=== PATIENT | male | born 1960 | race Caucasian/White ===

== ENCOUNTER 2016-12-31 16:16 | Observation (INO) ==
--- NOTE | 2016-12-31 17:16 | Emergency Department Note ---
Pj Greco Mantricia, am scribing for, and in the presence of, Damian Burns MD 17:13. Grant Greco Phillip K, MD, personally performed the services described in this documentation, ascribed by Nica Oliva in my presence, and it is both accurate and complete 716 . Arrival - Arrival Chief Complaint: Shortness of Breath Stated Complaint: TRANSFER FROM [facility], [facility] ED Nursing Triage Note: PT TRANSFERRED FROM [facility] ER FOR EVALUATION OF HYPOXIA/ CONFUSION. PT PRESENTED IN RESP DISTRESS WITH ROOM AIR SAT OF 87%. PT WEARS HOME OXYGEN. PT IS CONFUSED TO PLACE AND SITUATION. ROOM AIR SAT ON ARRIVAL TO ER 86%. Mode of Arrival: Stretcher Limitations: No Limitations Source: Patient - History of Present Illness HPI Narrative: Pt is a 56 y/o male arriving to ED by EMS as a transfer from [place] for further evaluation of hypoxia and confusion that onset today. Pt was given a CT head at [facility] and it was normal; he was also given a chest X-ray that showed nothing acute. He also states that he's hypoglycemic. During exam, pt is disoriented to place and situation. He currently is on home oxygen and does 3 breathing treatments a day. He complains of no other symptoms. Onset (ago): hour(s) Consistency: constant Severity: mild Severity scale (1-10): 3 Allergies/Adverse Reactions: Allergies Allergy/AdvReac Type Severity Reaction Status Date / Time prednisone Allergy Unknown/Unable Verified 12/31/16 16:26 to obtain [place] AdvReac Unknown/Unable Verified 12/31/16 16:26 to obtain Home Medications: Home Medications Medication Instructions Recorded Confirmed Type Albuterol Sulfate [Ventolin HFA] 02/07/15 02/07/15 History Did Not Bring List With Dosages 02/07/15 02/07/15 History HYDROcodone/ACETAMIN 10-325 [[place] 1 tablet PO Q6H 02/07/15 02/07/15 History 10-325] Levofloxacin Tab [Levaquin Tab] 500 mg PO DAILY 10 Days 02/07/15 Rx Montelukast Sodium [Singulair] 02/07/15 02/07/15 History Omeprazole [Omeprazole] 02/07/15 02/07/15 History Pregabalin [Lyrica] 02/07/15 02/07/15 History predniSONE TAB [PredniSONE] 02/07/15 02/07/15 History predniSONE TAB [PredniSONE] 40 mg PO DAILY 5 Days 02/07/15 Rx Review of System - Review of System 12 point system: reviewed and no additional remarkable complaints except as stated - Review of System Constitutional: Present: other (hypoxic; confusion). Absent: chills, diaphoresis, fever Eyes: Absent: discharge, pain Head/Ears/Nose/Throat: Absent: earache, epistaxis Respiratory: Absent: cough, respiratory distress, wheezing Cardiovascular: Absent: chest pain, palpitations, dyspnea on exertion Gastrointestinal: Absent: abdominal pain, nausea, vomiting, diarrhea Genitourinary male: Absent: urgency, dysuria Musculoskeletal: Absent: arm pain, back pain, leg pain, neck pain Skin: Absent: rash, lesions Neurological: Absent: headache, weakness Psychiatric: Absent: anxiety, depression Medical,Surgical,& Family Hx - Medical History Respiratory: History of: COPD, Respiratory Problems (mesothelioma) Musculoskeletal: History of: Back/Neck Problems - Surgical History Orthopedic Surgeries: Surgical HX of;: Spinal Surgery (cervical fusion) - Social History Smoking Status: Smoker, status unknown Frequency of Alcohol Use: None Type of Drug Use: None Exam Vital Signs: Vital Signs Temperature 98.6 F 12/31/16 16:46 Pulse Rate 90 12/31/16 16:46 Respiratory Rate 20 12/31/16 16:46 Blood Pressure 126/90 12/31/16 16:46 O2 Sat by Pulse Oximetry 86 L 12/31/16 16:16 - General General appearance: alert, in no apparent distress - Head Head exam: Present: atraumatic, normocephalic, normal inspection - Eye Eye exam: Present: normal appearance, PERRL, EOMI - ENT ENT exam: Present: normal exam, normal oropharynx, mucous membranes moist, TM's normal bilaterally, normal external ear exam - Neck Neck exam: Present: normal inspection, full ROM, trachea midline. Absent: tenderness - Chest Chest inspection: Present: normal inspection, symmetric chest wall rise. Absent : tenderness - Respiratory Respiratory exam: Present: prolonged expiratory phase, wheezes, other (Very little air movement.) - Cardiovascular Cardiovascular exam: Present: regular rate, normal rhythm, normal heart sounds - Abdominal Exam Abdominal exam: Present: soft, normal bowel sounds. Absent: distention, tenderness, guarding, rebound - Extremities Exam Extremities exam: Present: normal inspection, full ROM, normal capillary refill. Absent: tenderness, pedal edema - Back Exam Back exam: Present: normal inspection, full ROM. Absent: tenderness - Neurological Exam Neurological exam: Present: alert, oriented X3 (disoriented to place and situation), CN II-XII intact - Psychiatric Psychiatric exam: Present: normal affect, normal mood - Skin Skin exam: Present: warm, dry, intact, normal color Course Course Narrative: Patient was initially evaluated at [facility] in [place]. Patient had a normal CAT scan of his head and a normal urine drug screen. Patient's confusion is probably secondary to hypoxia. Results - Labs Lab Results: I have reviewed the patients labs (Labs at [facility] were essentially normal) - Diagnostic Findings Procedure: Chest x-ray: report reviewed by me (Nothing acute, COPD at [facility]), CT : report reviewed by me (CT head scan done at [facility]' showed no acute abnormality.) Disposition Clinical Impression: Acute exacerbation of chronic obstructive airways disease, Confusion Case discussed with: patient Disposition: Still a Patient Condition: Guarded Additional Instructions: Admit to the hospitalist.
[2016-12-31] MEDS ORDERED: ALBUTEROL/IPRATROPIUM 3 ML NEB RESP TX STA (17:19)
--- NOTE | 2016-12-31 17:38 | EKG Report ---
Stationary ECG Study [facility] Test Date: 12/31/2016 5:36:17 PM Pat Name: ZAID OLSEN Department: Room: Gender: M [employer]: : 1960 Requested by: Damian Manrique Order Number: [id number] Reading MD: NINFA MADSEN Intervals [place] Rate: 92 P: 89 SD: 154 QRS: 110 QRSD: 97 T: 80 QT: 368 QTc: 418 Interpretive Statements SINUS RHYTHM POSSIBLE RIGHT VENTRICULAR HYPERTROPHY Electronically Signed On 01-06-17 22:41:32 CDT by NINFA MADSEN [email or web address]
--- NOTE | 2016-12-31 17:48 | XRay Report ---
Portable chest Date: 12/31/2016 Clinical history: Shortness of breath Comparison: 02/15/2016 Technique: Portable AP sitting chest Findings: The heart is slightly larger in size. Chronic scarring in the lungs with calcified granulomata/nodes. Minimal parenchymal findings at the lung bases with small pleural effusions. Old healed right rib fractures with degenerative changes. Impression: Chronic scarring with evidence of COPD and old healed granulomatous disease. Minimal atelectasis/infiltration/edema at the lung bases with small pleural effusions. PROCEDURE INTERPRETED AT [facility] DEPARTMENT OF RADIOLOGY Final Report Signed by: Dr. Drea Santoyo
[2016-12-31] MEDS ORDERED: ZIPRASIDONE 20 MG/1 ML VIAL IM PRN (18:13)
[2016-12-31] MEDS ORDERED: SODIUM CHLORIDE 0.45% 1,000 ML IV SCH (18:13)
[2016-12-31] MEDS ORDERED: ACETAMINOPHEN 325 MG TABLET PO PRN (18:13)
[2016-12-31] MEDS ORDERED: LACTULOSE 20 GM/30 ML UDCUP PO PRN (18:13)
[2016-12-31] MEDS ORDERED: ZALEPLON 5 MG CAPSULE PO PRN (18:13)
[2016-12-31] MEDS ORDERED: ONDANSETRON 4 MG/2 ML VIAL IV PRN (18:13)
--- NOTE | 2016-12-31 18:13 | Hospitalist History & Physical ---
<Carlos Dillard - Last Filed: 12/31/16 17:52> Assessment and Plan - Time spent with patient Time spent with patient: Greater than 30 minutes (1) Acute exacerbation of chronic obstructive airways disease Status: Acute Assessment and plan: CXR reveals chronic scarring with evidence of COPD and minimal atelectasis/ infiltration/edema at the lung bases with small effusions. O2 Sat 89-100 on 2L per NC. Decreased breath sounds throughout. Continue O2. Breathing treatments. Broad spectrum antibiotics. Steroids. Current Visit: Yes (2) Bipolar 1 disorder with moderate uday Status: Acute Current Visit: Yes (3) Confusion Status: Acute Assessment and plan: Likely multifactorial secondary to hypoxia and bipolar disorder Current Visit: Yes History of Present Illness Chief complaint: shortness of breath History of present illness: Mr. Khan is a 56 year old male with a past medical history significant for COPD and bipolar disorder who presented to [facility] ED as a transfer from [facility] for further evaluation of hypoxia and confusion. The patient was evaluated at [facility] and found to have a normal CT and CXR with no acute findings. On exam, the patient is clinically manic with very sporadic conversation, inability to focus on one topic, and varying stories about his occupation and history of present illness. Upon entering the room, the patient was undressing himself stating "I'm leaving. 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 A thorough history was difficult to obtain from this patient due to his uday. He is extremely tachycardic with decreased breath sounds and has several bruises over his body. He admits to having home oxygen and breathing treatments. However, he was unable to tell me whether or not he's been compliant with the medications. He also noted that he is on several behavioral medications including depakote and zoloft. He will be admitted to the hospital medicine service for further evaluation and treatment. He is a full code. This case has been discussed with Dr. Krueger and Dr. Burns. Home Medications Medication Instructions Recorded Confirmed Type Acetaminophen Tab [Tylenol Tab] 650 mg PO Q4H PRN 12/31/16 12/31/16 History Albuterol Inhaler [Proventil 2 puff INH BID PRN 12/31/16 12/31/16 History Inhaler] Divalproex [Depakote] 250 mg PO QAM 12/31/16 12/31/16 History Divalproex [Depakote] 500 mg PO BEDTIME 12/31/16 12/31/16 History Docusate Sodium 100 mg PO DAILY 12/31/16 12/31/16 History Hydrocodone/Acetaminophen 1 each PO Q6H PRN 12/31/16 12/31/16 History [Hydrocodon-Acetaminophn 10-325] Ipratropium/Albuterol Inhaler 1 puff INH DAILY 12/31/16 12/31/16 History [Combivent Respimat Inhaler] LORazepam TAB [Ativan Tab] 1 mg PO Q6H PRN 12/31/16 12/31/16 History Montelukast Tab [Singulair Tab] 10 mg PO DAILY 12/31/16 12/31/16 History OLANZapine [Olanzapine] 10 mg PO BID 12/31/16 12/31/16 History Sertraline HCl 100 mg PO DAILY 12/31/16 12/31/16 History Tamsulosin HCl 0.4 mg PO BEDTIME 12/31/16 12/31/16 History amLODIPine [Norvasc] 10 mg PO DAILY 12/31/16 12/31/16 History rOPINIRole [Requip] 1 mg PO BEDTIME 12/31/16 12/31/16 History traMADol TAB [Ultram] 100 mg PO TID 12/31/16 12/31/16 History Allergies Allergy/AdvReac Type Severity Reaction Status Date / Time [place] AdvReac Unknown/Unable Verified 12/31/16 16:26 to obtain Medical,Surgical,& Family Hx - Medical History Psychological: History of: Bipolar Disorder Respiratory: History of: COPD, Respiratory Problems (mesothelioma) Musculoskeletal: History of: Back/Neck Problems - Surgical History Orthopedic Surgeries: Surgical HX of;: Spinal Surgery (cervical fusion) - Social History Smoking Status: Smoker, status unknown Frequency of Alcohol Use: None Type of Drug Use: None Marital Status: Single Lives With:: Alone Functional capacity: independent ambulation ROS unobtainable: other (manic state) - Respiratory Respiratory: Present: cough, dyspnea, wheezing - Musculoskeletal Musculoskeletal: Present: other ("broken foot") - Psychiatric Psychiatric: Present: anxiety, confusion, difficulty concentrating Exam - Constitutional Vitals: Period Temp Pulse Resp BP Sys/River Pulse Ox Last 24 Hr 93-93 21-23 97-99 Exam: General appearance: underweight, moderate distress - Head Head exam: Present: normocephalic, atraumatic - Eye Eye exam: Present: EOMI. Absent: conjunctival injection, nystagmus Pupils: Present: DANA, normal accommodation - ENT ENT exam: Present: normal exam, normal external ear exam - Neck Neck exam: Present: normal inspection. Absent: lymphadenopathy, tenderness, thyromegaly - Respiratory Respiratory exam: Present: decreased breath sounds, expiratory wheezes. - Cardiovascular Cardiovascular exam: Present: tachycardia. Absent: carotid bruit, gallop, rubs - GI/Abdominal GI/Abdominal exam: Present: normal bowel sounds. Absent: ascites, distended, mass - Extremities Exam Extremities exam: Present: normal inspection, normal capillary refill. Absent: edema - Back Exam Back exam: Absent: CVA tenderness (L), CVA tenderness (R) - Neurological Exam Neurological exam: Present: alert, confused - Psychiatric Psychiatric exam: Present: manic - Skin Skin exam: Present: normal color, warm, dry <White,Adry R - Last Filed: 12/31/16 19:29> Assessment and Plan (1) Acute exacerbation of chronic obstructive airways disease Status: Acute Assessment and plan: Continue steroids, duo nebs and Levaquin. Chest x-ray shows no pneumonia, monitor for further worsening of uday on steroids Current Visit: Yes (2) Anemia Status: Acute Assessment and plan: protonix, continue to monitor Current Visit: Yes (3) Bipolar 1 disorder with moderate uday Status: Acute Assessment and plan: Continue Zyprexa, Zoloft and Depakote. Ativan as needed, Geodon IM as needed, consult [facility] for evaluation, hold tramadol as patient at risk for serotonin syndrome Current Visit: Yes (4) Hypertension Status: Acute Assessment and plan: Hold Norvasc for now. Patient looks like he has been falling. Would get orthostatics. Needs stat CMP as no CMP was drawn at previous facility or at our facility. Hold Requip Current Visit: Yes History of Present Illness History of present illness: Mr. Khan is a 56 year old male seen and examined. Patient continuously wanting to expose himself. His been taken off his close. He is on multiple medicines for bipolar. He seems manic to me. He could not focus on a question. I will have [facility] see him as I am concerned about him living alone. Medical,Surgical,& Family Hx - Family History Family History: Denies;: Family Diabetes, Family Heart Disease - Social History Smoking Status: Current every day smoker - Constitutional Constitutional: Present: fatigue, headache(s), weight loss. Absent: weakness - EENT Nose, mouth and throat: Present: headache(s). Absent: sore throat - Cardiovascular Cardiovascular: Present: dyspnea, dyspnea on exertion. Absent: chest pain at rest, edema - Gastrointestinal Gastrointestinal: Absent: nausea, vomiting - Genitourinary Genitourinary: Present: difficulty urinating. Absent: dysuria - Neurological Neurological: Present: confusion, headache(s). Absent: syncope - Endocrine Endocrine: Present: cold intolerance, fatigue, heat intolerance - Hematologic/Lymphatic Hematologic/Lymphatic: Absent: easy bleeding, easy bruising Exam - Constitutional Vitals: Period Temp Pulse Resp BP Sys/River Pulse Ox Last 24 Hr 99.5 F 93-107 21-23 148/76 90-99 Exam: motor moving all extremities equal and symmetrical, DTR 2+ upper and lower extremities Results - Labs Lab Results: I have reviewed the past 24 hour labs Labs: Labs from [facility] WBC is 8.8, hemoglobin 10.9, platelets 229, magnesium 1.8, UA negative for glucose and ketones, urine drug screen negative, PTT 30.2, INR 0.94, glucose 82, CPK 218, troponin 0.013 - EKG EKG shows: sinus rhythm (From [facility] no ST changes) - Diagnostic Findings Procedure: Chest x-ray: report reviewed by me (COPD with possible small pleural effusion)
[2016-12-31] MEDS: methylPREDNISolone SOD SUC 40 MG/1 ML VIAL IV SCH (18:42)
[2016-12-31] MEDS ORDERED: ENOXAPARIN 40 MG/0.4 ML SYRINGE SUBCUT SCH (19:00)
[2016-12-31] MEDS ORDERED: LEVOFLOXACIN INJ 750 MG in PREMIX 1 EACH IV SCH (19:00)
[2016-12-31] MEDS: ALBUTEROL/IPRATROPIUM 3 ML NEB RESP TX SCH ×2 (19:19→23:55)
[2016-12-31] MEDS ORDERED: MAGNESIUM SULF RIDER 2 GM in PREMIX 1 EACH IV ONE (19:23)
[2016-12-31] MEDS ORDERED: LORazepam 1 MG TABLET PO PRN (19:24)
[2016-12-31 19:57] LABS: Bilirubin,Total 0.4 MG/DL (0.2-1.0); Calcium 8.6 MG/DL (8.5-10.1); Osmolality,Calculated 289.4 MOS/KG (273-304); Potassium 4.7 MMOL/L (3.5-5.1); Total Protein 5.9 G/DL (6.4-8.3)
[2016-12-31] MEDS: ALBUTEROL 2.5 MG/3 ML NEB RESP TX SCH ×2 (20:01→23:52)
[2016-12-31] MEDS ORDERED: DIVALPROEX 500 MG TABLET PO SCH (21:00)
[2016-12-31] MEDS ORDERED: TAMSULOSIN 0.4 MG CAPSULE PO SCH (21:00)
[2016-12-31] MEDS: OLANZapine 5 MG TABLET PO SCH (21:07)
[2016-12-31] MEDS: CLORAZEPATE 3.75 MG TABLET PO PRN (21:07)
[2017-01-01] MEDS: methylPREDNISolone SOD SUC 40 MG/1 ML VIAL IV SCH (04:38)
[2017-01-01 06:21] LABS: Basophils % 0.1 % (0.0-0.8); Hematocrit 39.1 VOL% (42.0-52.0); Hemoglobin 11.9 GM/DL (14.0-18.0); Immature Granulocytes % 0.4 %; Immature Granulocytes Absolute 0.03 #; Lymphocytes # 0.9 10*3/uL (1.4-4.0); Lymphocytes % 10.6 % (21.2-54.2); Mean Corpuscular HGB Conc 30.4 GM/DL (32-36); Mean Corpuscular Hemoglobin 29 PG (27-34); Mean Corpuscular Volume 96.1 FL (87-102); Mean Platelet Volume 9.3 FL (9.6-12.0); Monocytes # 0.5 10*3/uL (0.11-0.8); Monocytes % 5.7 % (1.7-12.7); Neutrophils # 6.7 10*3/uL (1.4-7.4); Neutrophils % 83.2 % (38.7-73.9); Platelet Count 233 T/CUMM (130-400); Red Blood Count 4.07 MC/CUMM (3.8-5.5); Red Cell Distribution Width 14.6 % (9.3-17.3); White Blood Count 8.1 T/CUMM (4-12)
[2017-01-01 06:57] LABS: Calcium 8.8 MG/DL (8.5-10.1); Osmolality,Calculated 293.3 MOS/KG (273-304); Potassium 4.7 MMOL/L (3.5-5.1)
[2017-01-01] MEDS: ALBUTEROL/IPRATROPIUM 3 ML NEB RESP TX SCH (07:09)
[2017-01-01] MEDS: ALBUTEROL 2.5 MG/3 ML NEB RESP TX SCH ×3 (07:25→10:30)
[2017-01-01] MEDS: CLORAZEPATE 3.75 MG TABLET PO PRN (08:31)
[2017-01-01] MEDS: OLANZapine 5 MG TABLET PO SCH (08:31)
[2017-01-01] MEDS ORDERED: DOCUSATE SODIUM 100 MG CAPSULE PO SCH (09:00)
[2017-01-01] MEDS ORDERED: DIVALPROEX 250 MG TABLET PO SCH (09:00)
[2017-01-01] MEDS ORDERED: MONTELUKAST 10 MG TABLET PO SCH (09:00)
[2017-01-01] MEDS ORDERED: PANTOPRAZOLE 40 MG TABLET PO SCH (09:00)
[2017-01-01] MEDS ORDERED: NICOTINE 21 MG/24 HR PATCH TRANSDERM SCH (09:00)
[2017-01-01] MEDS ORDERED: SERTRALINE 100 MG TABLET PO SCH (09:00)
[2017-01-01 09:01] VITALS: BP 150/70
--- NOTE | 2017-01-01 10:38 | Discharge Summary ---
Hospital Course - Hospital Course Hospital Course: Mr. Hood was admitted with shortness of breath and concern for COPD exacerbation in addition to potential confusion which was felt to be secondary to previous psychiatric disorder and possible hypoxia. Patient was started on IV steroids and Levaquin. By discharge he had significantly improved and had no shortness of breath. He is alert and oriented 3. He requested to be discharged and I found no reason to keep him any further. I felt he was competent and capable of making logical decisions and see no reason for referral to [facility]. He will be discharged with further treatment for his COPD exacerbation. I spent 35 minutes coordinating this discharge. - Time spent with patient Time with patient DS: Greater than 30 minutes Discharge Plan - Discharge Data Disposition: Disch To Home/Self Care Condition at Discharge: Stable Discharge Diet: advance to your usual diet Activity: resume usual activities as tolerated Hygiene: no restrictions - Discharge Medications New predniSONE TAB [PredniSONE] 50 mg PO DAILY #4 tablet Levofloxacin Tab [Levaquin Tab] 500 mg PO DAILY #6 tablet Nicotine 21 mg/24 Hr Patch [Nicoderm CQ 21 mg/24 hr Patch] 1 patch TRANSDERM DAILY #21 patch Continue Tamsulosin HCl 0.4 mg PO BEDTIME Montelukast Tab [Singulair Tab] 10 mg PO DAILY Hydrocodone/Acetaminophen [Hydrocodon-Acetaminophn 10-325] 1 each PO Q6H PRN PRN Reason: Pain traMADol TAB [Ultram] 100 mg PO TID amLODIPine [Norvasc] 10 mg PO DAILY OLANZapine [Olanzapine] 10 mg PO BID Ipratropium/Albuterol Inhaler [Combivent Respimat Inhaler] 1 puff INH DAILY Docusate Sodium 100 mg PO DAILY LORazepam TAB [Ativan Tab] 1 mg PO Q6H PRN PRN Reason: Anxiety Divalproex [Depakote] 500 mg PO BEDTIME Albuterol Inhaler [Proventil Inhaler] 2 puff INH BID PRN PRN Reason: Wheezing Acetaminophen Tab [Tylenol Tab] 650 mg PO Q4H PRN PRN Reason: Pain rOPINIRole [Requip] 1 mg PO BEDTIME Sertraline HCl 100 mg PO DAILY Divalproex [Depakote] 250 mg PO QAM - Follow Up or Referral - Forms/Instructions Exam - Constitutional Vitals: Period Temp Pulse Resp BP Sys/River Pulse Ox Last 24 Hr 97.6 F-99.5 F 70-107 16-24 148-150/70-98 82-99 General appearance: normal weight, no acute distress - Head Head exam: Present: normal inspection, normocephalic, atraumatic - Eye Eye exam: Present: EOMI Pupils: Present: DANA - ENT ENT exam: Present: normal exam - Neck Neck exam: Present: normal inspection - Respiratory Respiratory exam: Present: clear to auscultation bilaterally. Absent: accessory muscle use, prolonged expiratory phase, wheezes - Cardiovascular Cardiovascular exam: Present: regular rate and rhythm. Absent: bradycardia, irregular rhythm, systolic murmur - GI/Abdominal GI/Abdominal exam: Present: normal bowel sounds. Absent: ascites, hypoactive bowel sounds, tenderness - Extremities Exam Extremities exam: Present: normal inspection. Absent: normal capillary refill, full ROM - Neurological Exam Neurological exam: Present: alert, oriented X3 - Psychiatric Psychiatric exam: Present: normal affect, normal mood, anxious. Absent: agitated Discharge Results Labs on day of discharge: Labs from last 24 hours 01/01/17 01/01/17 12/31/16 05:30 05:30 18:36 WBC 8.1 RBC 4.07 Hgb 11.9 L Hct 39.1 L MCV 96.1 MCH 29 MCHC 30.4 L RDW 14.6 Plt Count 233 MPV 9.3 L Neut % (Auto) 83.2 H Lymph % (Auto) 10.6 L [place] % (Auto) 5.7 Eos % (Auto) 0.0 Baso % (Auto) 0.1 Neut # (Auto) 6.7 Lymph # (Auto) 0.9 L [place] # (Auto) 0.5 Eos # (Auto) 0.0 Baso # (Auto) 0.0 Immature Gran % 0.4 Nucleated RBC % 0.0 Immature Gran # 0.03 Nucleated RBCs # 0.00 Sodium 141 140 Potassium 4.7 4.7 Chloride 101 101 Carbon Dioxide 32 30 Anion Gap 12.7 13.7 BUN 29 H 27 H Creatinine 0.90 0.90 GFR Calculation 76 76 BUN/Creatinine Ratio 32.00 H 30.00 H Glucose 220 H 208 H POC Glucose Calculated Osmolality 293.3 289.4 Calcium 8.8 8.6 Magnesium Total Bilirubin 0.40 AST 25 ALT 17 Alkaline Phosphatase 137 H B-Natriuretic Peptide Total Protein 5.9 L Albumin 3.0 L Globulin 2.9 Albumin/Globulin Ratio 1.0 L 12/31/16 12/31/16 12/31/16 18:36 18:36 18:13 WBC RBC Hgb Hct MCV MCH MCHC RDW Plt Count MPV Neut % (Auto) Lymph % (Auto) [place] % (Auto) Eos % (Auto) Baso % (Auto) Neut # (Auto) Lymph # (Auto) [place] # (Auto) Eos # (Auto) Baso # (Auto) Immature Gran % Nucleated RBC % Immature Gran # Nucleated RBCs # Sodium Potassium Chloride Carbon Dioxide Anion Gap BUN Creatinine GFR Calculation BUN/Creatinine Ratio Glucose POC Glucose 138 H Calculated Osmolality Calcium Magnesium 1.9 Total Bilirubin AST ALT Alkaline Phosphatase B-Natriuretic Peptide 262 H Total Protein Albumin Globulin Albumin/Globulin Ratio DS: Provider Date of admission: 12/31/16 17:14 Primary care physician: . No PCP Attending physician on admission: Rasheed Wills MD Consults: 12/31/16 18:22 Consult to Pharmacy [CONS] Routine Reason for Pharmacy Consult: Adjust Meds Renal Funct 12/31/16 19:13 Consult to Case Mgmt/Social Srvs [CONS] Routine Reason for Case Mgmt/Social Srvs: Psychiatric Management Consult Comment: [facility] to evaluate, manic Discharging clinician: Josefina Bowles MD Expected date of discharge: 01/01/17
--- NOTE | 2017-01-03 12:29 | Physician Query Form ---
CLICK EDIT DOCUMENT TO SELECT QUERY ANSWER --> OK --> SIGN Rosana Eubanks RN, CCDS Certified Clinical Head Esthetician W) [phone] (f) [phone] [email or web address] PROVIDERS: Make your selection(s) from the choices in EACH section by typing an "x" and enter comments in the comment section. Please use your independent medical judgment in providing your response. This request does not imply that any particular answer is desired or expected. CLINICAL INDICATORS: (Providers should not edit this section) The medical record indicates that the patient was admitted with COPD exacerbation, "O2 Sat 89-100 on 2L per NC", "patient wears home oxygen", the patient was admitted and placed on 2 Liters per NC. Based on the above, could you clarify the appropriate diagnosis, if significant , that supports the above abnormalities and additional evaluation, monitoring, and/or treatment rendered: ( ) Patient is being monitored or treated for chronic respiratory failure ( ) Patient is not being monitored or treated for chronic respiratory failure ( ) Other, please specify: ( ) Clinically unable to determine COMMENTS: Use of terms such as suspected, likely, or probable (associated with a specific diagnosis that is being evaluated, monitored, or treated as if it exists) are acceptable and can be restated in the discharge summary if not ruled out. MTDD
== END 2017-01-01 13:25 | disposition home or self-care (01) ==
LOC: EDBD → EDUNIT# → N.ED 16:16 → INTOOBSV 17:14 → SUATTDRO 17:14 → N.EDINP 17:14 → N.2E 18:00
PROVIDERS: ADMIT Internal Medicine; ATTEND Internal Medicine

== ENCOUNTER 2017-01-21 18:32 | Inpatient (IN) ==
[2017-01-21] MEDS: NOREPINEPHRINE 8 MG in SODIUM CHLORIDE 0.9% 242 ML IV SCH ×2 (18:56→23:18)
[2017-01-21] MEDS ORDERED: MIDAZOLAM 100 MG in SODIUM CHLORIDE 0.9% 80 ML IV SCH (19:00)
--- NOTE | 2017-01-21 19:23 | XRay Report ---
Portable chest Date: 01/21/2017 Clinical history: Endotracheal tube placement Comparison: 01/21/2017 Technique: Portable AP sitting chest Findings: The heart is borderline in size. The endotracheal tube is in satisfactory position. Nasogastric tube coils upon itself in the mid esophagus location. Calcified granulomata with chronic scarring and atelectasis. Minimally progressive perihilar parenchymal findings . Old healed right rib fractures with degenerative changes. Impression: COPD/bullous emphysema with chronic scarring with progressive minimal perihilar atelectasis/infiltration/edema. The endotracheal tube is in satisfactory position. The nasogastric tube coils upon itself in the mid esophagus and should be advanced further into the stomach. PROCEDURE INTERPRETED AT [facility] DEPARTMENT OF RADIOLOGY Final Report Signed by: Dr. Drea Santoyo
[2017-01-21 19:41] LABS: Allen Test Positive; Pt O2 Delivery Device Ventilator
[2017-01-21] MEDS ORDERED: VANCOMYCIN INJ 1,000 MG in SODIUM CHLORIDE 0.9% 250 ML IV STA ×2 (20:03→21:07)
[2017-01-21] MEDS ORDERED: CEFEPIME 1,000 MG in SODIUM CHLORIDE 0.9% 100 ML IV STA (20:03)
[2017-01-21 20:08] LABS: ABG Base Excess -15.4 MMOL/L (-2.5-2.5); ABG HCO3 13.7 MMOL/L (20-26); ABG Oxygen Saturation 99.6 % (95-100); ABG PCO2 45.3 MM HG (35-48); ABG TCO2 15.1 MMOL/L (23-27)
[2017-01-21 20:09] LABS: ABG PO2 557.1 MM HG (80-95)
[2017-01-21 20:10] LABS: ABG PH 7.099 (7.35-7.45)
--- NOTE | 2017-01-21 20:20 | XRay Report ---
Portable chest Date: 01/21/2017 Clinical history: Nasogastric tube placement Comparison: 01/21/2017 Technique: Portable AP supine chest Findings: Satisfactory advancement of the nasogastric tube into the stomach. Otherwise the chest is stable in appearance. Impression: Satisfactory advancement of the nasogastric tube into the stomach. PROCEDURE INTERPRETED AT [facility] DEPARTMENT OF RADIOLOGY Final Report Signed by: Dr. Drea Santoyo
[2017-01-21] MEDS ORDERED: NOREPINEPHRINE 4 MG/4 ML VIAL IV ONE (20:29)
[2017-01-21 20:46] LABS: Basophils % 0.1 % (0.0-0.8); Hematocrit 38.8 VOL% (42.0-52.0); Hemoglobin 12.1 GM/DL (14.0-18.0); Immature Granulocytes % 0.9 %; Immature Granulocytes Absolute 0.13 #; Lymphocytes # 0.8 10*3/uL (1.4-4.0); Lymphocytes % 5.8 % (21.2-54.2); Mean Corpuscular HGB Conc 31.2 GM/DL (32-36); Mean Corpuscular Hemoglobin 30 PG (27-34); Mean Corpuscular Volume 97.2 FL (87-102); Mean Platelet Volume 9.7 FL (9.6-12.0); Monocytes # 0.8 10*3/uL (0.11-0.8); Monocytes % 6.1 % (1.7-12.7); NRBC # 0.03 10*3/uL; Neutrophils # 12.1 10*3/uL (1.4-7.4); Neutrophils % 87.1 % (38.7-73.9); Platelet Count 119 T/CUMM (130-400); Red Blood Count 3.99 MC/CUMM (3.8-5.5); Red Cell Distribution Width 15.2 % (9.3-17.3); White Blood Count 13.8 T/CUMM (4-12)
[2017-01-21 20:59] LABS: INR 2.2
[2017-01-21] MEDS ORDERED: SODIUM CHLORIDE 0.9% 1,500 ML IV ONE (21:00)
[2017-01-21] MEDS ORDERED: PROPOFOL 1,000 MG/100 ML BOTTLE IV SCH (21:00)
[2017-01-21] MEDS ORDERED: ONDANSETRON 4 MG/2 ML VIAL IV PRN (21:00)
[2017-01-21] MEDS ORDERED: DIVALPROEX 500 MG TABLET PO SCH (21:00)
[2017-01-21] MEDS ORDERED: ENOXAPARIN 30 MG/0.3 ML SYRINGE SUBCUT SCH (21:00)
[2017-01-21] MEDS ORDERED: MORPHINE 2 MG/1 ML SYRINGE IV PRN (21:00)
[2017-01-21 21:05] LABS: PT Patient Result 24.1 SECS
[2017-01-21 21:06] LABS: Albumin 2.3 G/DL (3.4-5.0); Bilirubin,Total 1.7 MG/DL (0.2-1.0); Osmolality,Calculated 297.8 MOS/KG (273-304); Potassium 5.9 MMOL/L (3.5-5.1); Total Protein 4.4 G/DL (6.4-8.3)
[2017-01-21 21:09] LABS: Troponin I Only 2.39 NG/ML (0.00-0.045)
--- NOTE | 2017-01-21 21:10 | Hospitalist History & Physical ---
Assessment and Plan (1) Sepsis Status: Acute Assessment and plan: The patient is admitted to hospital with clinical evidence of septicemia due to clamminess, hypo-thermia, and relative hypoxia. The patient will be admitted to intensive care unit. He will receive sepsis protocol including IV bolus of fluid. The patient has elevated white blood cell count which may be on account of his previous steroid use while in hospital. The patient has relatively clean urine and I doubt that this represents urinary tract septicemia. The patient may have a gram-positive bacteremia due to previous hospital treatment. The patient may have C. difficile colitis due to his IV antibiotic care received on last examination and the fact that he was sent out with a prescription for Levaquin. The patient will be treated with vancomycin, cefepime, and enteral Flagyl. We will obtain pulmonary and infectious disease consultations in the morning. Current Visit: Yes History of Present Illness Chief complaint: Weakness and hypotension History of present illness: Mr. Khan is a 56 year old male who was discharged from [facility] after treatment of COPD exacerbation about a week ago. The patient was at the [facility] and transferred to [facility] emergency room due to weakness and lethargy. At the emergency room the patient was treated for septicemia and intubated due to hypoxia. The patient was received in transfer back to [facility] this afternoon. The patient continues on mechanical ventilation and is unable to give further history. The patient had told the emergency room at [facility] that his symptoms began 3 days prior to admission have gradually worsened. I evaluated the written record from [facility] and reviewed old records from last admission to Dr. Matthews a week ago. Home Medications Medication Instructions Recorded Confirmed Type Acetaminophen Tab [Tylenol Tab] 650 mg PO Q4H PRN 12/31/16 12/31/16 History Albuterol Inhaler [Proventil 2 puff INH BID PRN 12/31/16 12/31/16 History Inhaler] Divalproex [Depakote] 250 mg PO QAM 12/31/16 12/31/16 History Divalproex [Depakote] 500 mg PO BEDTIME 12/31/16 12/31/16 History Docusate Sodium 100 mg PO DAILY 12/31/16 12/31/16 History Hydrocodone/Acetaminophen 1 each PO Q6H PRN 12/31/16 12/31/16 History [Hydrocodon-Acetaminophn 10325] Ipratropium/Albuterol Inhaler 1 puff INH DAILY 12/31/16 12/31/16 History [Combivent Respimat Inhaler] LORazepam TAB [Ativan Tab] 1 mg PO Q6H PRN 12/31/16 12/31/16 History Montelukast Tab [Singulair Tab] 10 mg PO DAILY 12/31/16 12/31/16 History OLANZapine [Olanzapine] 10 mg PO BID 12/31/16 12/31/16 History Sertraline HCl 100 mg PO DAILY 12/31/16 12/31/16 History Tamsulosin HCl 0.4 mg PO BEDTIME 12/31/16 12/31/16 History amLODIPine [Norvasc] 10 mg PO DAILY 12/31/16 12/31/16 History rOPINIRole [Requip] 1 mg PO BEDTIME 12/31/16 12/31/16 History traMADol TAB [Ultram] 100 mg PO TID 12/31/16 12/31/16 History Levofloxacin Tab [Levaquin Tab] 500 mg PO DAILY #6 tablet 01/01/17 Rx Nicotine 21 mg/24 Hr Patch 1 patch TRANSDERM DAILY #21 patch 01/01/17 Rx [Nicoderm CQ 21 mg/24 hr Patch] predniSONE TAB [PredniSONE] 50 mg PO DAILY #4 tablet 01/01/17 Rx Allergies Allergy/AdvReac Type Severity Reaction Status Date / Time prednisone Allergy Unknown/Unable Verified 01/01/17 00:17 to obtain [place] AdvReac Unknown/Unable Verified 12/31/16 16:26 to obtain Medical,Surgical,& Family Hx - Medical History Cardio: History of: Cardiovascular Problems (murmur) Psychological: History of: Anxiety Disorders, Bipolar Disorder Respiratory: History of: COPD, Respiratory Problems (mesothelioma) Gastrointestinal: History of: GERD, GI Problems (stomach ulcer) Musculoskeletal: History of: Back/Neck Problems - Surgical History Abdominal Surgeries: Surgical HX of: EGD Orthopedic Surgeries: Surgical HX of;: Spinal Surgery (cervical fusion) - Family History Family History: Denies;: Family Diabetes, Family Heart Disease - Social History Smoking Status: Current every day smoker Frequency of Alcohol Use: Unknown Type of Drug Use: Unknown Marital Status: Single Lives With:: Alone Functional capacity: independent ambulation ROS unobtainable: due to endotracheal tube Exam - Constitutional Vitals: Period Temp Pulse Resp BP Sys/River Pulse Ox Last 24 Hr 92.6 F-92.6 F 50-50 12-14 78-83/24-40 92 Exam: Constitutional System: No distress. No tremulousness. The patient is orally intubated and mechanically ventilated. He is sedated. Skin is clammy Head: Normocephalic, atraumatic. Ears, Nose and Throat System: No evidence of Otitis or Mastoiditis. No epistaxis or discharge Eyes System: Pupils equal, round, and reactive. Neck: Supple, without adenopathy, No jugular venous distention. No thyromegaly , neck mass, or prior surgery apparent. Respiratory System: Chest scattered rhonchi to auscultation. Cardiovascular System: Heart with regular rate and rhythm. No murmur. GI System: Abdomen soft, nontender. Normo active bowel sounds present. Musculoskeletal System: limbs with no pedal edema. Full distal pulses. Neurological System: Unable to examine due to sedation Psychiatric System: Unable to examine due to sedation Results - Labs CBC & BMP: 01/21/17 20:18 Lab Results: I have reviewed the past 24 hour labs - Diagnostic Findings Procedure: Chest x-ray: image reviewed by me (No infiltrates are seen. The patient has chronic lung changes consistent with COPD)
[2017-01-21] MEDS ORDERED: VANCOMYCIN INJ 1,000 MG in SODIUM CHLORIDE 0.9% 250 ML IV ONE (21:30)
[2017-01-21] MEDS ORDERED: SODIUM BICARBONATE 50 MEQ/50 ML VIAL IV ONE ×2 (21:32→22:18)
[2017-01-21] MEDS: SODIUM CHLORIDE 0.9% 1,000 ML IV SCH (21:48)
[2017-01-21] MEDS: FAMOTIDINE 20 MG/2 ML VIAL IV SCH (21:54)
[2017-01-21] MEDS ORDERED: DEXTROSE 50% 25 GM/50 ML VIAL IV ONE (22:14)
[2017-01-21] MEDS ORDERED: INSULIN REGULAR 100 UNIT/ML IV ONE (22:15)
--- NOTE | 2017-01-21 22:26 | EKG Report ---
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
[2017-01-21] MEDS: OLANZapine 5 MG TABLET PO SCH (22:41)
[2017-01-22 00:04] LABS: CKMB % 5.7 %
[2017-01-22 00:12] LABS: Troponin I Only 3.33 NG/ML (0.00-0.045)
--- NOTE | 2017-01-22 01:38 | Cardiology Consult Note ---
Assessment and Plan - Time spent with patient Time spent with patient: Greater than 30 minutes (Chart review, documentation, examination, discussion with referring physician) (1) High anion gap metabolic acidosis Status: Acute Assessment and plan: Based on his abdominal exam and the findings of exam feel the patient is likely had some type of abdominal event that is major. His abdomen is very distended he has no bowel sounds it is extremely firm. Recommend imaging as soon as possible and surgical consultation. The patient appears to me to have an acute abdominal event. This likely would explain his anion gap acidosis if he has ischemic bowel or other acute abdominal process. I discussed with Dr. Jolly Current Visit: Yes (2) Mitral regurgitation Status: Acute Current Visit: Yes (3) Elevated troponin I level Status: Acute Assessment and plan: This patient has a mild troponin elevation in the face of acute shock and when this appears to be possibly sepsis. This is likely type II or demand ischemia or may just simply be from his acute renal failure. I do not see an indication for left heart catheterization or further workup at this time. Recommend treating the underlying process Current Visit: Yes (4) Hepatitis Status: Acute Assessment and plan: This is likely part of his acute process with shock organs consider thrombotic event either arterial or venous Current Visit: Yes (5) Acute exacerbation of chronic obstructive airways disease Status: Acute Current Visit: No (6) Anemia Status: Acute Current Visit: No (7) Sepsis Status: Acute Assessment and plan: I don't know if this is the primary event or secondary to acute abdominal pathology. Current Visit: Yes (8) Acute renal failure (ARF) Status: Acute Assessment and plan: Creatinine was 0.9 earlier in the month, now 2.9 Current Visit: Yes (9) Coagulopathy Status: Acute Assessment and plan: Patient has an INR of 2.2 and not on anticoagulants that I can see. Current Visit: Yes History of Present Illness - Data of Consult Patient: new to practice Consult date: 01/22/17 Requesting Physician: Srinivas Jolly - Consult Narrative Reason for consult: Shock History of present illness: Mr. Khan is a 56 year old male who is been admitted here at [facility] but has no documentable cardiac studies except an EKG. The patient was apparently recently here with COPD exacerbation received steroids antibiotics. He also apparently had some altered mental status at that time. All history is taken from the chart. The patient is intubated the time I saw him. Patient apparently went to the [facility] emergency room and was intubated for hypoxemia has had what appeared to be an undifferentiated shock and was transferred here I reviewed his chart. He has an anion gap of 24 relatively mild leukocytosis and is currently on high-dose Levophed. 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 Jolly. I reviewed his EKGs. He has some QTc prolongation and T -wave inversion in V1 and V2 he has an incomplete right bundle branch block. He has some what appears to be J-point elevation in the lateral leads but is not diagnostic and the morphology does not suggest acute ischemia. Patient of course is on the respirator. I have been unable to locate records from outside facility of exactly the events that occurred at that facility. I do not find in the electronic health record. I did review the old record from admission earlier this month on 2016. CC: Srinivas Jolly MD - Home Medications and Allergies Home Medications: Home Medications Medication Instructions Recorded Confirmed Type Acetaminophen Tab [Tylenol Tab] 650 mg PO Q4H PRN 12/31/16 12/31/16 History Albuterol Inhaler [Proventil 2 puff INH BID PRN 12/31/16 12/31/16 History Inhaler] Divalproex [Depakote] 250 mg PO QAM 12/31/16 12/31/16 History Divalproex [Depakote] 500 mg PO BEDTIME 12/31/16 12/31/16 History Docusate Sodium 100 mg PO DAILY 12/31/16 12/31/16 History Hydrocodone/Acetaminophen 1 each PO Q6H PRN 12/31/16 12/31/16 History [Hydrocodon-Acetaminophn 10-325] Ipratropium/Albuterol Inhaler 1 puff INH DAILY 12/31/16 12/31/16 History [Combivent Respimat Inhaler] LORazepam TAB [Ativan Tab] 1 mg PO Q6H PRN 12/31/16 12/31/16 History Montelukast Tab [Singulair Tab] 10 mg PO DAILY 12/31/16 12/31/16 History OLANZapine [Olanzapine] 10 mg PO BID 12/31/16 12/31/16 History Sertraline HCl 100 mg PO DAILY 12/31/16 12/31/16 History Tamsulosin HCl 0.4 mg PO BEDTIME 12/31/16 12/31/16 History amLODIPine [Norvasc] 10 mg PO DAILY 12/31/16 12/31/16 History rOPINIRole [Requip] 1 mg PO BEDTIME 12/31/16 12/31/16 History traMADol TAB [Ultram] 100 mg PO TID 12/31/16 12/31/16 History Levofloxacin Tab [Levaquin Tab] 500 mg PO DAILY #6 tablet 01/01/17 Rx Nicotine 21 mg/24 Hr Patch 1 patch TRANSDERM DAILY #21 patch 01/01/17 Rx [Nicoderm CQ 21 mg/24 hr Patch] predniSONE TAB [PredniSONE] 50 mg PO DAILY #4 tablet 01/01/17 Rx Allergies/Adverse Reactions: Allergies Allergy/AdvReac Type Severity Reaction Status Date / Time prednisone Allergy Unknown/Unable Verified 01/01/17 00:17 to obtain [place] AdvReac Unknown/Unable Verified 12/31/16 16:26 to obtain ROS unobtainable: due to endotracheal tube Medical,Surgical,& Family Hx - Medical History Cardio: History of: Hypertension, Valvular Heart Disease (mitral regurgitation by exam ) Psychological: History of: Anxiety Disorders, Bipolar Disorder Respiratory: History of: COPD, Respiratory Problems (mesothelioma) Gastrointestinal: History of: GERD, GI Problems (stomach ulcer) Musculoskeletal: History of: Back/Neck Problems - Surgical History Abdominal Surgeries: Surgical HX of: EGD Orthopedic Surgeries: Surgical HX of;: Spinal Surgery (cervical fusion) - Family History Family History: Denies;: Family Diabetes, Family Heart Disease - Social History Smoking Status: Current every day smoker Frequency of Alcohol Use: Unknown Type of Drug Use: Unknown Marital Status: Single Lives With:: Alone Functional capacity: independent ambulation Physical Examination Vital Signs Temp Pulse Resp BP Pulse Ox 92.6 F L 50 L 14 78/24 92 L 01/21/17 18:32 01/21/17 18:32 01/21/17 18:32 01/21/17 18:32 01/21/17 18:32 General: Present: Other (Patient appears critically ill is intubated on pressors.) HEENT: Present: Other (Mild exophthalmos with scleral edema) Neck: Present: Supple Neck Cardiac: Present: Reg Rate and Rhythm, S1/S2, Other (Patient has laterally displaced PMI and harsh 3/6 murmur of mitral regurgitation radiating to the axilla) Lungs: Present: Wheezes Abdomen: Present: Other (The abdomen is extremely firm is distended has no bowel sounds. I do not hear bruit. There is an NG tube in place with dark aspirate. The nurses report bloody stools) Skin: Present: Mottled, Other (Patient has peripheral cyanosis also several areas of excoriations on his knees and arms) Extremities: Present: Cool, Mottled Result/EKG - Labs CBC & BMP: 01/21/17 20:18 01/21/17 20:18 Labs: Laboratory Results - last 24 hr 01/21/17 01/21/17 01/21/17 19:20 20:18 20:18 WBC 13.8 H RBC 3.99 Hgb 12.1 L Hct 38.8 L MCV 97.2 MCH 30 MCHC 31.2 L RDW 15.2 Plt Count 119 L MPV 9.7 Neut % (Auto) 87.1 H Lymph % (Auto) 5.8 L [place] % (Auto) 6.1 Eos % (Auto) 0.0 Baso % (Auto) 0.1 Neut # (Auto) 12.1 H Lymph # (Auto) 0.8 L [place] # (Auto) 0.8 Eos # (Auto) 0.0 Baso # (Auto) 0.0 Immature Gran % 0.9 Nucleated RBC % 0.2 Immature Gran # 0.13 Nucleated RBCs # 0.03 INR 2.2 PT Patient/Control Mix 24.1 Circ Anticoag PTT 46.0 H ABG pH 7.099 L* ABG pCO2 45.3 ABG pO2 557.1 H ABG HCO3 13.7 L ABG Total CO2 15.1 L ABG O2 Saturation 99.6 ABG Base Excess -15.4 L FiO2 100.00 Sodium Potassium Chloride Carbon Dioxide Anion Gap BUN Creatinine GFR Calculation BUN/Creatinine Ratio Glucose POC Glucose Calculated Osmolality Lactic Acid Calcium Total Bilirubin AST ALT Alkaline Phosphatase Total Creatine Kinase CK-MB (CK-2) CK and CKMB Interp Troponin I Total Protein Albumin Globulin Albumin/Globulin Ratio Valproic Acid 01/21/17 01/21/17 01/21/17 20:18 20:18 23:33 WBC RBC Hgb Hct MCV MCH MCHC RDW Plt Count MPV Neut % (Auto) Lymph % (Auto) [place] % (Auto) Eos % (Auto) Baso % (Auto) Neut # (Auto) Lymph # (Auto) [place] # (Auto) Eos # (Auto) Baso # (Auto) Immature Gran % Nucleated RBC % Immature Gran # Nucleated RBCs # INR PT Patient/Control Mix Circ Anticoag PTT ABG pH ABG pCO2 ABG pO2 ABG HCO3 ABG Total CO2 ABG O2 Saturation ABG Base Excess FiO2 Sodium 137 Potassium 5.9 H Chloride 103 Carbon Dioxide 16 L Anion Gap 23.9 H BUN 77 H Creatinine 2.90 H GFR Calculation 20 BUN/Creatinine Ratio 26.00 H Glucose 143 H POC Glucose Calculated Osmolality 297.8 Lactic Acid 8.0 H Calcium 7.0 L Total Bilirubin 1.70 H AST 3445 H ALT 1554 H Alkaline Phosphatase 179 H Total Creatine Kinase 916 H CK-MB (CK-2) 51.8 H CK and CKMB Interp 5.7 Troponin I 2.390 H 3.330 H D Total Protein 4.4 L Albumin 2.3 L Globulin 2.1 L Albumin/Globulin Ratio 1.0 L Valproic Acid < 3.0 L 01/22/17 00:00 WBC RBC Hgb Hct MCV MCH MCHC RDW Plt Count MPV Neut % (Auto) Lymph % (Auto) [place] % (Auto) Eos % (Auto) Baso % (Auto) Neut # (Auto) Lymph # (Auto) [place] # (Auto) Eos # (Auto) Baso # (Auto) Immature Gran % Nucleated RBC % Immature Gran # Nucleated RBCs # INR PT Patient/Control Mix Circ Anticoag PTT ABG pH ABG pCO2 ABG pO2 ABG HCO3 ABG Total CO2 ABG O2 Saturation ABG Base Excess FiO2 Sodium Potassium Chloride Carbon Dioxide Anion Gap BUN Creatinine GFR Calculation BUN/Creatinine Ratio Glucose POC Glucose 212 H Calculated Osmolality Lactic Acid Calcium Total Bilirubin AST ALT Alkaline Phosphatase Total Creatine Kinase CK-MB (CK-2) CK and CKMB Interp Troponin I Total Protein Albumin Globulin Albumin/Globulin Ratio Valproic Acid - EKG EKG results: interpreted by me (As per my interpretation as written on the tracings)
--- NOTE | 2017-01-22 01:39 | Event Note ---
Was called to the CCU room 125 to see Mr. Rasheed Khan because the patient's blood pressures extremely low despite maximizing doses of Levophed. This gentleman just got admitted to the hospital here around 8 PM having been transferred from the [facility] and was admitted by Dr. Gupta. I came to the bedside and the patient is intubated and unresponsive with a platelet count of the has an EKG that is suggesting injury to the anteroseptal wall. His troponins are elevated to 3.3 and his CPK-MB (CK-2) of 51.8 total CK of 916. He has a potassium of 5.9 bicarbonate of 16 lactic acid of 8 and elevated transaminases with AST of 3445 LDL 1554 alkaline phosphatase 179 total bilirubin 1.7 INR 2.2 PTT 40 he has a white count of 13,800 hemoglobin 12.1 hematocrit of 38.8 platelet count of 1 19,000 and has melena stools. I cannot reflect neurogenic bowel sounds. KUB is a total white out I cannot see in the area in the bowel he has a [place]-sump NG-tube in place that is suctioning out some dark brown material I am concerned about possibility of contribution of cardiogenic contribution to his hypotension. I am repeating an EKG; I did talk to Dr. Lawson the registered nurse midwife information technology internship. He will be coming in to see the patient. I have reviewed information that is available from [facility] there is no microbiology report for me to follow back to. Site of sepsis with his gentleman is not clear improved with a bowel is mention of the urine to be infected but I do not have that report. His latest arterial blood gases pH 7.099 PCO2 of 45 PO2 was 557 and oxygen was dropped to 60% repeat ABG will be done shortly. Concerns: 1. Shock this could be sepsis or could be cardiogenic or both. Patient does have end-organ compromise. 2. Abnormal EKG concerned about possibility of acute coronary syndrome with acute myocardial infarction patient may have reversible lesions on his attention of the registered nurse midwife. 3. Needle pressors at this time patient's blood pressures have come back to acceptable range. We will continue Levophed at the current rate if needed dopamine have to be added 4. Count almost silent abdomen was sent about possibility of bowel ischemia. KUB has not been able to tell me much regarding possibility of obstruction we may have to resort to doing CT scan of the abdomen without contrast. There is bowel infarct within that could be the source of the lactic acidosis. 5. Metabolic acidosis continue bicarbonate infusion at this time. Obtain good blood pressure that could be the source of recovery. 6. Acute kidney injury this could be contribution of acute tubular necrosis. Will try to get the urine as soon as we can get it at this time is not making any assess it for infection. His x-ray has not shown much of this time so I do not think the infection is in the lungs 7. Shock liver with elevated transaminases. Continue pressors and maintain blood pressures acceptable range. 8. I reviewed antibiotics patient is on. He is on cefepime therefore Zosyn is not necessary. Continue vancomycin alongside the cefepime. Dose to cefepime and vancomycin tailoring them to the patient's current GFR. Appropriate changes will be made. Prognosis of this patient is still very poor. Have not been able to find any relative to talk to. Apparently on the present table able to contact was a friend who acted as a guardian at this time. I am informed he has a very old elderly mother who they do not want to bother at this time.
[2017-01-22 03:03] LABS: Lactic Acid 5.7 MMOL/L (0.4-2.0)
[2017-01-22] MEDS: DOPamine 800 MG/250 ML PREMIX IV SCH ×2 (03:16→08:53)
[2017-01-22 03:31] LABS: ABG Base Excess -10.5 MMOL/L (-2.5-2.5); ABG HCO3 16.5 MMOL/L (20-26); ABG Oxygen Saturation 98.8 % (95-100); ABG PCO2 40.7 MM HG (35-48); ABG PH 7.227 (7.35-7.45); ABG PO2 189.4 MM HG (80-95); ABG TCO2 17.8 MMOL/L (23-27); Pt O2 Delivery Device Ventilator
[2017-01-22 03:37] LABS: Calcium 6.6 MG/DL (8.5-10.1); Magnesium 1.9 MG/DL (1.8-2.4); Osmolality,Calculated 303.1 MOS/KG (273-304); Potassium 4.6 MMOL/L (3.5-5.1)
[2017-01-22 04:00] LABS: CKMB % 7.2 %
[2017-01-22 04:05] LABS: Troponin I Only 6.91 NG/ML (0.00-0.045)
[2017-01-22] MEDS: NOREPINEPHRINE 8 MG in SODIUM CHLORIDE 0.9% 242 ML IV SCH (05:38)
[2017-01-22] MEDS: SODIUM CHLORIDE 0.9% 1,000 ML IV SCH (05:39)
--- NOTE | 2017-01-22 06:13 | XRay Report ---
XR KUB Indication: Distended abdomen Comparison: None. Technique: Supine AP image of the abdomen was obtained. Findings: Lung bases demonstrate opacification of the left cardiophrenic angle likely in part due to left lower lobe atelectasis. Small bilateral pleural effusions are excluded.. NG tube terminates within the gastric fundus. There is no evidence of organomegaly. No gas can be identified within loops of bowel suggesting fluid-filled loops of bowel within dependent patient. Renal contours are bilaterally symmetric. Bones and soft tissues demonstrate no significant abnormalities. Previous repair of the right hip is demonstrated. Impression: 1. Bowel gas pattern is not well-visualized likely secondary to fluid-filled loops of bowel in the dependent patient. Flat and upright images of the abdomen may be useful for further evaluation. 2. NG tube placement as detailed. 3. Findings within the lung bases as detailed. 01/22/2017 6:10 AM PROCEDURE INTERPRETED AT [facility] DEPARTMENT OF RADIOLOGY Final Report Signed by: Dr. Jez Eubanks
--- NOTE | 2017-01-22 06:14 | XRay Report ---
XR chest 1V portable Indication: Hypoxemia. Comparison: Chest x-ray 01/21/2017 Technique: Portable AP chest was performed. Findings: Opacification of the left cardiophrenic angle and blunting the left costophrenic angle remain present suggesting consolidation/atelectasis of the left lower lobe with accompanying left-sided pleural effusion. Chest otherwise demonstrates little change in comparison. Multiple tubes and medical support devices appear stable. Impression: 1. Worsened atelectasis and/or consolidation of the left lower lobe is demonstrated. Small left subpleural effusion is present. 01/22/2017 6:11 AM PROCEDURE INTERPRETED AT [facility] DEPARTMENT OF RADIOLOGY Final Report Signed by: Dr. Jez Eubanks
--- NOTE | 2017-01-22 06:23 | CT Report ---
CT abdomen pelvis wo con Indication: Abnormal KUB. Abdominal distention. Comparison: KUB same date Technique: CT of the abdomen and pelvis was performed without administration of intravenous contrast. The CT examination was performed using one or more of the following dose reduction techniques: Automatic exposure control, adjustment of the mA and kV according to patient size, use of acute or iterative reconstruction techniques. Findings: Complete evaluation of solid organs, vascular structures, and bowel wall is not possible secondary to lack of intravenous contrast. Bilateral pleural effusions are demonstrated. Left-sided pleural effusion is slightly larger than the right. Mild cardiomegaly suggested. Compressive atelectasis of the left lower lobe is demonstrated. Emphysematous changes are present bilaterally. NG tube terminates within the gastric fundus. Large amount of ascites is demonstrated throughout the abdomen. The large bowel has suggested diffuse bowel wall thickening involving left and right colon. This is not well visualized secondary to lack of intravenous contrast. The right colonic wall measures up to 16 mm. The left measures up to 10.5 mm. Hypoattenuating lesion within the posterior segment right hepatic lobe is demonstrated measuring slightly larger than a centimeter in size. Further evaluation is not possible secondary to lack of intravenous contrast. The gallbladder demonstrates diffusely increased attenuation within the gallbladder lumen that could reflect high attenuation sludge. Gallbladder wall cannot be identified. Spleen is normal in size and appearance. The pancreas is not well visualized and appears grossly normal. Diffuse intimal calcification of the aorta and iliac arteries is demonstrated. Some loops of small bowel have suggested wall thickening present. The kidneys are grossly unremarkable. Intrapelvic contents demonstrate presence of a moderate to large amount of dependent ascites. A catheter is present within the urinary bladder. Urinary bladder wall thickening is suggested. Previous placement of right side gamma nail within the right hip is present. Osseous structures demonstrate no acute finding. Soft tissues and musculature of the body wall demonstrate no acute findings. Body wall edema is present. Impression: 1. A large amount ascites is noted throughout the abdomen and pelvis. 2. Bowel wall is difficult to visualize secondary to lack of intravenous contrast. There appears to be diffuse bowel wall thickening involving the colon that could reflect evidence of colitis, etiologies to include entities such as pseudomembranous colitis. Some areas of small bowel wall thickening are not excluded and other etiologies could include inflammatory bowel disease. 3. Hypoattenuating lesion of the liver is present and further evaluation is not possible secondary to size and lack of intravenous contrast. 4. Diffuse bladder wall thickening is present. 5. High attenuation material throughout the gallbladder could reflect evidence of sludge. 6. Bilateral pleural effusions. 01/22/2017 6:15 AM PROCEDURE INTERPRETED AT [facility] DEPARTMENT OF RADIOLOGY Final Report Signed by: Dr. Jez Eubanks
--- NOTE | 2017-01-22 07:44 | EKG Report ---
Stationary ECG Study [facility] Test Date: 01/22/2017 12:39:57 AM Pat Name: ZAID OLSEN Department: Room: 125 Gender: M Appeals Officer: : 1960 Requested by: Amanda Newman Order Number: [id number] Claus MD: TENA RUELAS Intervals [place] Rate: 77 P: 81 MT: 143 QRS: 78 QRSD: 102 T: 80 QT: 429 QTc: 460 Interpretive Statements SINUS RHYTHM WITH SINUS ARRHYTHMIA Electronically Signed On 01-24-17 16:21:18 CDT by TENA RUELAS [email or web address]
[2017-01-22 07:52] LABS: CKMB % 6.9 %
[2017-01-22 07:54] LABS: Troponin I Only 10.3 NG/ML (0.00-0.045)
[2017-01-22] MEDS ORDERED: metroNIDAZOLE INJ 500 MG in PREMIX 1 EACH IV SCH (08:00)
--- NOTE | 2017-01-22 08:00 | Cardiology Progress Note ---
Assessment and Plan (1) High anion gap metabolic acidosis Status: Acute Assessment and plan: Based on his abdominal exam and the findings of exam feel the patient is likely had some type of abdominal event that is major. His abdomen is very distended he has no bowel sounds it is extremely firm. Recommend imaging as soon as possible and surgical consultation. The patient appears to me to have an acute abdominal event. This likely would explain his anion gap acidosis if he has ischemic bowel or other acute abdominal process. I discussed with Dr. Jolly Current Visit: Yes (2) Mitral regurgitation Status: Acute Current Visit: Yes (3) Elevated troponin I level Status: Acute Assessment and plan: This patient troponin up to 10 think this is type II demand ischemia from pressors and acute illness Current Visit: Yes (4) Hepatitis Status: Acute Assessment and plan: This is likely part of his acute process with shock organs consider thrombotic event either arterial or venous Current Visit: Yes (5) Acute exacerbation of chronic obstructive airways disease Status: Acute Current Visit: No (6) Sepsis Status: Acute Assessment and plan: I don't know if this is the primary event or secondary to acute abdominal pathology. Current Visit: Yes (7) Acute renal failure (ARF) Status: Acute Assessment and plan: Creatinine elevated Current Visit: Yes (8) Coagulopathy Status: Acute Assessment and plan: Patient has an INR of 2.2 and not on anticoagulants that I can see. Current Visit: Yes (9) Ascites Status: Acute Current Visit: Yes (10) Bilateral pleural effusion Status: Acute Current Visit: Yes Cardiology - PN: Subj Interval history: I reviewed Mr. Khan CT of the abdomen. He has had significant amount of large voluminous bloody bowel movements. Looks like his CBC has been canceled this morning. His biomarkers increased as expected as his metabolic derangement his gotten slightly worse. Exam (Progress Note) - Constitutional Vitals: Period Temp Pulse Resp BP Sys/River Pulse Ox Last 24 Hr 92.6 F-97.5 F 50-79 11-17 45-186/24-152 88-100 General appearance: normal weight - Head Head exam: Present: normal inspection - Eye Eye exam: Present: EOMI - Neck Neck exam: Present: normal inspection - Respiratory Respiratory exam: Present: clear to auscultation bilaterally - Cardiovascular Cardiovascular exam: Present: regular rate and rhythm - GI/Abdominal GI/Abdominal exam: Present: firm, other (No audible bowel sounds very hard but more soft than last night. It is tense.) Result/EKG - Labs CBC & BMP: 01/21/17 20:18 01/22/17 02:33 Labs: Laboratory Results - last 24 hr 01/21/17 01/21/17 01/21/17 19:20 20:18 20:18 WBC 13.8 H RBC 3.99 Hgb 12.1 L Hct 38.8 L MCV 97.2 MCH 30 MCHC 31.2 L RDW 15.2 Plt Count 119 L MPV 9.7 Neut % (Auto) 87.1 H Lymph % (Auto) 5.[address] [facility] % (Auto) 6.1 Eos % (Auto) 0.0 Baso % (Auto) 0.1 LUCs % Neut # (Auto) 12.1 H Lymph # (Auto) 0.[address] [facility] # (Auto) 0.8 Eos # (Auto) 0.0 Baso # (Auto) 0.0 LUCs # Total Counted Immature Gran % 0.9 Nucleated RBC % 0.2 Immature Gran # 0.13 Segmented Neutrophils Band Neutrophils Lymphocytes Monocytes Eosinophils Basophils Metamyelocytes Myelocytes Promyelocytes Nucleated RBCs Nucleated RBCs # 0.03 Hypersegmented Neuts Vacuolated Neuts Atypical Lymphocytes Atypic/Reactive Lymphs Blast Cells Plasma Cells Smudge Cells Toxic Granulation Dohle Bodies Platelet Estimate Giant Platelets Platelet Satelliting Immature Plt Fraction RBC Morphology Polychromasia Hypochromasia Poikilocytosis Basophilic Stippling Anisocytosis Microcytosis Macrocytosis Spherocytes Pappenheimer Bodies Sickle Cells Target Cells Tear Drop Cells Ovalocytes Oval Macrocytes Stomatocytes Helmet Cells Mil[place] Bodies Marion Cells Elliptocytes Acanthocytes (Spur) Rouleaux Schistocytes Morphology Comment INR 2.2 PT Patient/Control Mix 24.1 Circ Anticoag PTT 46.0 H ABG pH 7.099 L* ABG pCO2 45.3 ABG pO2 557.1 H ABG HCO3 13.7 L ABG Total CO2 15.1 L ABG O2 Saturation 99.6 ABG Base Excess -15.4 L FiO2 100.00 Sodium Potassium Chloride Carbon Dioxide Anion Gap BUN Creatinine GFR Calculation BUN/Creatinine Ratio Glucose POC Glucose Calculated Osmolality Lactic Acid Calcium Magnesium Total Bilirubin AST ALT Alkaline Phosphatase Total Creatine Kinase CK-MB (CK-2) CK and CKMB Interp Troponin I Total Protein Albumin Globulin Albumin/Globulin Ratio Valproic Acid 01/21/17 01/21/17 01/21/17 20:18 20:18 23:33 WBC RBC Hgb Hct MCV MCH MCHC RDW Plt Count MPV Neut % (Auto) Lymph % (Auto) [facility] % (Auto) Eos % (Auto) Baso % (Auto) LUCs % Neut # (Auto) Lymph # (Auto) [facility] # (Auto) Eos # (Auto) Baso # (Auto) LUCs # Total Counted Immature Gran % Nucleated RBC % Immature Gran # Segmented Neutrophils Band Neutrophils Lymphocytes Monocytes Eosinophils Basophils Metamyelocytes Myelocytes Promyelocytes Nucleated RBCs Nucleated RBCs # Hypersegmented Neuts Vacuolated Neuts Atypical Lymphocytes Atypic/Reactive Lymphs Blast Cells Plasma Cells Smudge Cells Toxic Granulation Dohle Bodies Platelet Estimate Giant Platelets Platelet Satelliting Immature Plt Fraction RBC Morphology Polychromasia Hypochromasia Poikilocytosis Basophilic Stippling Anisocytosis Microcytosis Macrocytosis Spherocytes Pappenheimer Bodies Sickle Cells Target Cells Tear Drop Cells Ovalocytes Oval Macrocytes Stomatocytes Helmet Cells Mil[place] Bodies Moncho Cells Elliptocytes Acanthocytes (Spur) Rouleaux Schistocytes Morphology Comment INR PT Patient/Control Mix Circ Anticoag PTT ABG pH ABG pCO2 ABG pO2 ABG HCO3 ABG Total CO2 ABG O2 Saturation ABG Base Excess FiO2 Sodium 137 Potassium 5.9 H Chloride 103 Carbon Dioxide 16 L Anion Gap 23.9 H BUN 77 H Creatinine 2.90 H GFR Calculation 20 BUN/Creatinine Ratio 26.00 H Glucose 143 H POC Glucose Calculated Osmolality 297.8 Lactic Acid 8.0 H Calcium 7.0 L Magnesium Total Bilirubin 1.70 H AST 3445 H ALT 1554 H Alkaline Phosphatase 179 H Total Creatine Kinase 916 H CK-MB (CK-2) 51.8 H CK and CKMB Interp 5.7 Troponin I 2.390 H 3.330 H D Total Protein 4.4 L Albumin 2.3 L Globulin 2.1 L Albumin/Globulin Ratio 1.0 L Valproic Acid < 3.0 L 01/22/17 01/22/17 01/22/17 00:00 02:33 02:33 WBC RBC Hgb Hct MCV MCH MCHC RDW Plt Count MPV Neut % (Auto) Lymph % (Auto) [facility] % (Auto) Eos % (Auto) Baso % (Auto) LUCs % Neut # (Auto) Lymph # (Auto) [facility] # (Auto) Eos # (Auto) Baso # (Auto) LUCs # Total Counted Immature Gran % Nucleated RBC % Immature Gran # Segmented Neutrophils Band Neutrophils Lymphocytes Monocytes Eosinophils Basophils Metamyelocytes Myelocytes Promyelocytes Nucleated RBCs Nucleated RBCs # Hypersegmented Neuts Vacuolated Neuts Atypical Lymphocytes Atypic/Reactive Lymphs Blast Cells Plasma Cells Smudge Cells Toxic Granulation Dohle Bodies Platelet Estimate Giant Platelets Platelet Satelliting Immature Plt Fraction RBC Morphology Polychromasia Hypochromasia Poikilocytosis Basophilic Stippling Anisocytosis Microcytosis Macrocytosis Spherocytes Pappenheimer Bodies Sickle Cells Target Cells Tear Drop Cells Ovalocytes Oval Macrocytes Stomatocytes Helmet Cells [place] Bodies Marion Cells Elliptocytes Acanthocytes (Spur) Rouleaux Schistocytes Morphology Comment INR PT Patient/Control Mix Circ Anticoag PTT ABG pH ABG pCO2 ABG pO2 ABG HCO3 ABG Total CO2 ABG O2 Saturation ABG Base Excess FiO2 Sodium 142 Potassium 4.6 Chloride 108 H Carbon Dioxide 18 L Anion Gap 20.6 H BUN 69 H Creatinine 2.60 H GFR Calculation 24 BUN/Creatinine Ratio 26.00 H Glucose 125 H POC Glucose 212 H Calculated Osmolality 303.1 Lactic Acid 5.7 H Calcium 6.6 L Magnesium 1.9 Total Bilirubin AST ALT Alkaline Phosphatase Total Creatine Kinase Cancelled 1297 H D CK-MB (CK-2) 92.8 H D CK and CKMB Interp 7.2 Troponin I Cancelled 6.910 H D Total Protein Albumin Globulin Albumin/Globulin Ratio Valproic Acid 01/22/17 01/22/17 01/22/17 03:15 04:15 06:19 WBC Cancelled RBC Cancelled Hgb Cancelled Hct Cancelled MCV Cancelled MCH Cancelled MCHC Cancelled RDW Cancelled Plt Count Cancelled MPV Cancelled Neut % (Auto) Cancelled Lymph % (Auto) Cancelled [facility] % (Auto) Cancelled Eos % (Auto) Cancelled Baso % (Auto) Cancelled LUCs % Cancelled Neut # (Auto) Cancelled Lymph # (Auto) Cancelled [facility] # (Auto) Cancelled Eos # (Auto) Cancelled Baso # (Auto) Cancelled LUCs # Cancelled Total Counted Cancelled Immature Gran % Cancelled Nucleated RBC % Cancelled Immature Gran # Cancelled Segmented Neutrophils Cancelled Band Neutrophils Cancelled Lymphocytes Cancelled Monocytes Cancelled Eosinophils Cancelled Basophils Cancelled Metamyelocytes Cancelled Myelocytes Cancelled Promyelocytes Cancelled Nucleated RBCs Cancelled Nucleated RBCs # Cancelled Hypersegmented Neuts Cancelled Vacuolated Neuts Cancelled Atypical Lymphocytes Cancelled Atypic/Reactive Lymphs Cancelled Blast Cells Cancelled Plasma Cells Cancelled Smudge Cells Cancelled Toxic Granulation Cancelled Dohle Bodies Cancelled Platelet Estimate Cancelled Giant Platelets Cancelled Platelet Satelliting Cancelled Immature Plt Fraction Cancelled RBC Morphology Cancelled Polychromasia Cancelled Hypochromasia Cancelled Poikilocytosis Cancelled Basophilic Stippling Cancelled Anisocytosis Cancelled Microcytosis Cancelled Macrocytosis Cancelled Spherocytes Cancelled Pappenheimer Bodies Cancelled Sickle Cells Cancelled Target Cells Cancelled Tear Drop Cells Cancelled Ovalocytes Cancelled Oval Macrocytes Cancelled Stomatocytes Cancelled Helmet Cells Cancelled [place] Bodies Cancelled Marion Cells Cancelled Elliptocytes Cancelled Acanthocytes (Spur) Cancelled Rouleaux Cancelled Schistocytes Cancelled Morphology Comment Cancelled INR PT Patient/Control Mix Circ Anticoag PTT ABG pH 7.227 L ABG pCO2 40.7 ABG pO2 189.4 H ABG HCO3 16.5 L ABG Total CO2 17.8 L ABG O2 Saturation 98.8 ABG Base Excess -10.5 L FiO2 50.00 Sodium Potassium Chloride Carbon Dioxide Anion Gap BUN Creatinine GFR Calculation BUN/Creatinine Ratio Glucose POC Glucose Calculated Osmolality Lactic Acid Calcium Magnesium Total Bilirubin AST ALT Alkaline Phosphatase Total Creatine Kinase 2400 H D CK-MB (CK-2) 166.6 H D CK and CKMB Interp 6.9 Troponin I 10.300 H D Total Protein Albumin Globulin Albumin/Globulin Ratio Valproic Acid
[2017-01-22] MEDS ORDERED: SERTRALINE 100 MG TABLET PO SCH (09:00)
[2017-01-22] MEDS ORDERED: DIVALPROEX 250 MG TABLET PO SCH (09:00)
[2017-01-22] MEDS ORDERED: NOREPINEPHRINE 16 MG in SODIUM CHLORIDE 0.9% 234 ML IV SCH (09:00)
[2017-01-22] MEDS ORDERED: CEFEPIME 500 MG in SODIUM CHLORIDE 0.9% 100 ML IV SCH (09:00)
[2017-01-22] MEDS ORDERED: SODIUM CHLORIDE 0.9% 2,000 ML IV ONE (09:24)
[2017-01-22] MEDS: OLANZapine 5 MG TABLET PO SCH (10:11)
[2017-01-22] MEDS: FAMOTIDINE 20 MG/2 ML VIAL IV SCH (10:11)
--- NOTE | 2017-01-22 10:15 | Event Note ---
critical care time 31 minutes- spent on exam, reviewing records, discussing his case with his nurse at bedside and adjusting meds/boluses/etc to improve blood pressure without success. He is unresponsive on vent, maxxed on levophed and dopamine and bolused with NS. He has a firm abdomen no bowel sounds. Family on their way. In addition: Had long discussion with family (20 minutes) regarding his condition and end of life wishes. His mother is his closest family and she and his cousins all report that he did not want life support and would like to withdraw care. His son Bhargav also arrived. He does not see him often an agrees with his grandmother' s plan. We will withdraw support after family has visited. We have also summoned the director external communications at their request.
[2017-01-22 10:22] VITALS: BP 152/87
--- NOTE | 2017-01-22 12:55 | General Surgery Consult Note ---
Assessment and Plan (1) Sepsis Status: Acute Assessment and plan: Impression: Sepsis likely due to bowel ischemia Plan: Labs and CT reviewed. Patient has evidence of multiple endorgan failure. The family has decided to make him comfort care only. I discussed my thoughts with him that this is likely an intra-abdominal catastrophe leading to multiple system failure. I offered exploratory laparotomy but felt the he would likely not survive, with or without surgery. Entire family elected to make him comfort care at that time. Current Visit: Yes History of Present Illness Chief complaint: Sepsis History of present illness: Mr. Khan is a 56 year old male who was admitted with sepsis. I was consulted this morning and notified by Dr. Reyes. Patient was seen at approximately 8:00 this morning. The family arrived and the case discussed with them around 930. Chart reviewed. Family stated the patient has had abdominal complaints including pain for "a long time". I suspect he had an intra-abdominal catastrophe and probably with some infarcted bowel leading to further deterioration. At the time I saw him he was on Levophed and unresponsive. Intubated. Home Medications Medication Instructions Recorded Confirmed Type Acetaminophen Tab [Tylenol Tab] 650 mg PO Q4H PRN 12/31/16 12/31/16 History Albuterol Inhaler [Proventil 2 puff INH BID PRN 12/31/16 12/31/16 History Inhaler] Divalproex [Depakote] 250 mg PO QAM 12/31/16 12/31/16 History Divalproex [Depakote] 500 mg PO BEDTIME 12/31/16 12/31/16 History Docusate Sodium 100 mg PO DAILY 12/31/16 12/31/16 History Hydrocodone/Acetaminophen 1 each PO Q6H PRN 12/31/16 12/31/16 History [Hydrocodon-Acetaminophn 10-325] Ipratropium/Albuterol Inhaler 1 puff INH DAILY 12/31/16 12/31/16 History [Combivent Respimat Inhaler] LORazepam TAB [Ativan Tab] 1 mg PO Q6H PRN 12/31/16 12/31/16 History Montelukast Tab [Singulair Tab] 10 mg PO DAILY 12/31/16 12/31/16 History OLANZapine [Olanzapine] 10 mg PO BID 12/31/16 12/31/16 History Sertraline HCl 100 mg PO DAILY 12/31/16 12/31/16 History Tamsulosin HCl 0.4 mg PO BEDTIME 12/31/16 12/31/16 History amLODIPine [Norvasc] 10 mg PO DAILY 12/31/16 12/31/16 History rOPINIRole [Requip] 1 mg PO BEDTIME 12/31/16 12/31/16 History traMADol TAB [Ultram] 100 mg PO TID 12/31/16 12/31/16 History Levofloxacin Tab [Levaquin Tab] 500 mg PO DAILY #6 tablet 01/01/17 Rx Nicotine 21 mg/24 Hr Patch 1 patch TRANSDERM DAILY #21 patch 01/01/17 Rx [Nicoderm CQ 21 mg/24 hr Patch] predniSONE TAB [PredniSONE] 50 mg PO DAILY #4 tablet 01/01/17 Rx Allergies Allergy/AdvReac Type Severity Reaction Status Date / Time prednisone Allergy Unknown/Unable Verified 01/01/17 00:17 to obtain [place] AdvReac Unknown/Unable Verified 12/31/16 16:26 to obtain Medical,Surgical,& Family Hx - Medical History Cardio: History of: Hypertension, Valvular Heart Disease (mitral regurgitation by exam ), Cardiovascular Problems (murmur) Psychological: History of: Anxiety Disorders, Bipolar Disorder Respiratory: History of: COPD, Respiratory Problems (mesothelioma) Gastrointestinal: History of: GERD, GI Problems (stomach ulcer) Musculoskeletal: History of: Back/Neck Problems - Surgical History Abdominal Surgeries: Surgical HX of: EGD Orthopedic Surgeries: Surgical HX of;: Spinal Surgery (cervical fusion) - Family History Family History: Denies;: Family Diabetes, Family Heart Disease - Social History Smoking Status: Current every day smoker Frequency of Alcohol Use: Unknown Type of Drug Use: Unknown ROS unobtainable: due to endotracheal tube Exam - Constitutional Vitals: Period Temp Pulse Resp BP Sys/River Pulse Ox Last 24 Hr 92.6 F-97.5 F 50-108 11-17 45-186/24-152 88-100 - Head Head exam: Present: normocephalic - Neck Neck exam: Present: normal inspection - Respiratory Respiratory exam: Present: clear to auscultation bilaterally - Cardiovascular Cardiovascular exam: Present: tachycardia - GI/Abdominal GI/Abdominal exam: Present: firm (Abdomen firm and distended. Exam limited.) - Neurological Exam Neurological exam: Present: other (Intubated and sedated) - Skin Skin exam: Present: other (Hands and feet are cold and clammy) Results - Labs CBC & BMP: 01/21/17 20:18 01/22/17 02:33 Lab Results: I have reviewed the past 24 hour labs
--- NOTE | 2017-01-22 14:04 | Discharge Summary ---
Hospital Course - Hospital Course Hospital Course: Mr Khan presented yesterday evening with severe septic shock that was due to ischemic bowel. He was treated aggressively with resuscitation measures but did not improve. He had associated respiratory, renal, circulatory failure. Dr Moraes from surgery evaluated him and did not feel that surgery would reverse his grim prognosis. His mother and son and cousins were all certain that he would not want life support in any scenario and also would not want ACLS. Accordingly the vent and pressors were stopped and he shortly after that. - Time spent with patient Time with patient DS: Less than 30 minutes Diagnosis - Discharge Diagnosis (1) Severe sepsis with septic shock Status: Acute (2) Ischemic bowel disease Status: Acute (3) Bipolar 1 disorder with moderate uday Status: Acute Discharge Plan - Discharge Data Disposition: - Discharge Medications No Action Tamsulosin HCl 0.4 mg PO BEDTIME Montelukast Tab [Singulair Tab] 10 mg PO DAILY Hydrocodone/Acetaminophen [Hydrocodon-Acetaminophn 10-325] 1 each PO Q6H PRN PRN Reason: Pain traMADol TAB [Ultram] 100 mg PO TID amLODIPine [Norvasc] 10 mg PO DAILY OLANZapine [Olanzapine] 10 mg PO BID Ipratropium/Albuterol Inhaler [Combivent Respimat Inhaler] 1 puff INH DAILY Docusate Sodium 100 mg PO DAILY LORazepam TAB [Ativan Tab] 1 mg PO Q6H PRN PRN Reason: Anxiety Divalproex [Depakote] 500 mg PO BEDTIME Albuterol Inhaler [Proventil Inhaler] 2 puff INH BID PRN PRN Reason: Wheezing predniSONE TAB [PredniSONE] 50 mg PO DAILY #4 tablet Acetaminophen Tab [Tylenol Tab] 650 mg PO Q4H PRN PRN Reason: Pain rOPINIRole [Requip] 1 mg PO BEDTIME Sertraline HCl 100 mg PO DAILY Divalproex [Depakote] 250 mg PO QAM Levofloxacin Tab [Levaquin Tab] 500 mg PO DAILY #6 tablet Nicotine 21 mg/24 Hr Patch [Nicoderm CQ 21 mg/24 hr Patch] 1 patch TRANSDERM DAILY #21 patch - Follow Up or Referral - Forms/Instructions Exam - Constitutional Vitals: Period Temp Pulse Resp BP Sys/River Pulse Ox Last 24 Hr 92.6 F-97.5 F 50-108 07-12 [id number] 88-100 Discharge Results Procedures and tests throughout hospitalization: Pending Orders 01/21/17 20:02 Blood Culture Stat 01/21/17 21:30 Stool Culture/[place]y/[place]ers[place] Routine 01/22/17 MRSA Surveillence, Inf Control Routine 01/23/17 04:00 Cortisol 8 AM IN AM Labs on day of discharge: Labs from last 24 hours 01/22/17 01/22/17 01/22/17 06:19 04:15 03:15 WBC Cancelled RBC Cancelled Hgb Cancelled Hct Cancelled MCV Cancelled MCH Cancelled MCHC Cancelled RDW Cancelled Plt Count Cancelled MPV Cancelled Neut % (Auto) Cancelled Lymph % (Auto) Cancelled Gregory % (Auto) Cancelled Eos % (Auto) Cancelled Baso % (Auto) Cancelled LUCs % Cancelled Neut # (Auto) Cancelled Lymph # (Auto) Cancelled Gregory # (Auto) Cancelled Eos # (Auto) Cancelled Baso # (Auto) Cancelled LUCs # Cancelled Total Counted Cancelled Immature Gran % Cancelled Nucleated RBC % Cancelled Immature Gran # Cancelled Segmented Neutrophils Cancelled Band Neutrophils Cancelled Lymphocytes Cancelled Monocytes Cancelled Eosinophils Cancelled Basophils Cancelled Metamyelocytes Cancelled Myelocytes Cancelled Promyelocytes Cancelled Nucleated RBCs Cancelled Nucleated RBCs # Cancelled Hypersegmented Neuts Cancelled Vacuolated Neuts Cancelled Atypical Lymphocytes Cancelled Atypic/Reactive Lymphs Cancelled Blast Cells Cancelled Plasma Cells Cancelled Smudge Cells Cancelled Toxic Granulation Cancelled Dohle Bodies Cancelled Platelet Estimate Cancelled Giant Platelets Cancelled Platelet Satelliting Cancelled Immature Plt Fraction Cancelled RBC Morphology Cancelled Polychromasia Cancelled Hypochromasia Cancelled Poikilocytosis Cancelled Basophilic Stippling Cancelled Anisocytosis Cancelled Microcytosis Cancelled Macrocytosis Cancelled Spherocytes Cancelled Pappenheimer Bodies Cancelled Sickle Cells Cancelled Target Cells Cancelled Tear Drop Cells Cancelled Ovalocytes Cancelled Oval Macrocytes Cancelled Stomatocytes Cancelled Helmet Cells Cancelled [place] Bodies Cancelled [place] Cells Cancelled Elliptocytes Cancelled Acanthocytes (Spur) Cancelled Rouleaux Cancelled Schistocytes Cancelled Morphology Comment Cancelled INR PT Patient/Control Mix Circ Anticoag PTT ABG pH 7.227 L ABG pCO2 40.7 ABG pO2 189.4 H ABG HCO3 16.5 L ABG Total CO2 17.8 L ABG O2 Saturation 98.8 ABG Base Excess -10.5 L FiO2 50.00 Sodium Potassium Chloride Carbon Dioxide Anion Gap BUN Creatinine GFR Calculation BUN/Creatinine Ratio Glucose POC Glucose Calculated Osmolality Lactic Acid Calcium Magnesium Total Bilirubin AST ALT Alkaline Phosphatase Total Creatine Kinase 2400 H D CK-MB (CK-2) 166.6 H D CK and CKMB Interp 6.9 Troponin I 10.300 H D Total Protein Albumin Globulin Albumin/Globulin Ratio Valproic Acid 01/22/17 01/22/17 01/22/17 02:33 02:33 00:00 WBC RBC Hgb Hct MCV MCH MCHC RDW Plt Count MPV Neut % (Auto) Lymph % (Auto) Gregory % (Auto) Eos % (Auto) Baso % (Auto) LUCs % Neut # (Auto) Lymph # (Auto) Gregory # (Auto) Eos # (Auto) Baso # (Auto) LUCs # Total Counted Immature Gran % Nucleated RBC % Immature Gran # Segmented Neutrophils Band Neutrophils Lymphocytes Monocytes Eosinophils Basophils Metamyelocytes Myelocytes Promyelocytes Nucleated RBCs Nucleated RBCs # Hypersegmented Neuts Vacuolated Neuts Atypical Lymphocytes Atypic/Reactive Lymphs Blast Cells Plasma Cells Smudge Cells Toxic Granulation Dohle Bodies Platelet Estimate Giant Platelets Platelet Satelliting Immature Plt Fraction RBC Morphology Polychromasia Hypochromasia Poikilocytosis Basophilic Stippling Anisocytosis Microcytosis Macrocytosis Spherocytes Pappenheimer Bodies Sickle Cells Target Cells Tear Drop Cells Ovalocytes Oval Macrocytes Stomatocytes Helmet Cells [place] Bodies Moncho Cells Elliptocytes Acanthocytes (Spur) Rouleaux Schistocytes Morphology Comment INR PT Patient/Control Mix Circ Anticoag PTT ABG pH ABG pCO2 ABG pO2 ABG HCO3 ABG Total CO2 ABG O2 Saturation ABG Base Excess FiO2 Sodium 142 Potassium 4.6 Chloride 108 H Carbon Dioxide 18 L Anion Gap 20.6 H BUN 69 H Creatinine 2.60 H GFR Calculation 24 BUN/Creatinine Ratio 26.00 H Glucose 125 H POC Glucose 212 H Calculated Osmolality 303.1 Lactic Acid 5.7 H Calcium 6.6 L Magnesium 1.9 Total Bilirubin AST ALT Alkaline Phosphatase Total Creatine Kinase 1297 H D Cancelled CK-MB (CK-2) 92.8 H D CK and CKMB Interp 7.2 Troponin I 6.910 H D Cancelled Total Protein Albumin Globulin Albumin/Globulin Ratio Valproic Acid 01/21/17 01/21/17 01/21/17 23:33 20:18 20:18 WBC RBC Hgb Hct MCV MCH MCHC RDW Plt Count MPV Neut % (Auto) Lymph % (Auto) Gregory % (Auto) Eos % (Auto) Baso % (Auto) LUCs % Neut # (Auto) Lymph # (Auto) Gregory # (Auto) Eos # (Auto) Baso # (Auto) LUCs # Total Counted Immature Gran % Nucleated RBC % Immature Gran # Segmented Neutrophils Band Neutrophils Lymphocytes Monocytes Eosinophils Basophils Metamyelocytes Myelocytes Promyelocytes Nucleated RBCs Nucleated RBCs # Hypersegmented Neuts Vacuolated Neuts Atypical Lymphocytes Atypic/Reactive Lymphs Blast Cells Plasma Cells Smudge Cells Toxic Granulation Dohle Bodies Platelet Estimate Giant Platelets Platelet Satelliting Immature Plt Fraction RBC Morphology Polychromasia Hypochromasia Poikilocytosis Basophilic Stippling Anisocytosis Microcytosis Macrocytosis Spherocytes Pappenheimer Bodies Sickle Cells Target Cells Tear Drop Cells Ovalocytes Oval Macrocytes Stomatocytes Helmet Cells [place] Bodies Moncho Cells Elliptocytes Acanthocytes (Spur) Rouleaux Schistocytes Morphology Comment INR PT Patient/Control Mix Circ Anticoag PTT ABG pH ABG pCO2 ABG pO2 ABG HCO3 ABG Total CO2 ABG O2 Saturation ABG Base Excess FiO2 Sodium 137 Potassium 5.9 H Chloride 103 Carbon Dioxide 16 L Anion Gap 23.9 H BUN 77 H Creatinine 2.90 H GFR Calculation 20 BUN/Creatinine Ratio 26.00 H Glucose 143 H POC Glucose Calculated Osmolality 297.8 Lactic Acid 8.0 H Calcium 7.0 L Magnesium Total Bilirubin 1.70 H AST 3445 H ALT 1554 H Alkaline Phosphatase 179 H Total Creatine Kinase 916 H CK-MB (CK-2) 51.8 H CK and CKMB Interp 5.7 Troponin I 3.330 H D 2.390 H Total Protein 4.4 L Albumin 2.3 L Globulin 2.1 L Albumin/Globulin Ratio 1.0 L Valproic Acid < 3.0 L 01/21/17 01/21/17 01/21/17 20:18 20:18 19:20 WBC 13.8 H RBC 3.99 Hgb 12.1 L Hct 38.8 L MCV 97.2 MCH 30 MCHC 31.2 L RDW 15.2 Plt Count 119 L MPV 9.7 Neut % (Auto) 87.1 H Lymph % (Auto) 5.8 L Gregory % (Auto) 6.1 Eos % (Auto) 0.0 Baso % (Auto) 0.1 LUCs % Neut # (Auto) 12.1 H Lymph # (Auto) 0.8 L Gregory # (Auto) 0.8 Eos # (Auto) 0.0 Baso # (Auto) 0.0 LUCs # Total Counted Immature Gran % 0.9 Nucleated RBC % 0.2 Immature Gran # 0.13 Segmented Neutrophils Band Neutrophils Lymphocytes Monocytes Eosinophils Basophils Metamyelocytes Myelocytes Promyelocytes Nucleated RBCs Nucleated RBCs # 0.03 Hypersegmented Neuts Vacuolated Neuts Atypical Lymphocytes Atypic/Reactive Lymphs Blast Cells Plasma Cells Smudge Cells Toxic Granulation Dohle Bodies Platelet Estimate Giant Platelets Platelet Satelliting Immature Plt Fraction RBC Morphology Polychromasia Hypochromasia Poikilocytosis Basophilic Stippling Anisocytosis Microcytosis Macrocytosis Spherocytes Pappenheimer Bodies Sickle Cells Target Cells Tear Drop Cells Ovalocytes Oval Macrocytes Stomatocytes Helmet Cells [place] Bodies Moncho Cells Elliptocytes Acanthocytes (Spur) Rouleaux Schistocytes Morphology Comment INR 2.2 PT Patient/Control Mix 24.1 Circ Anticoag PTT 46.0 H ABG pH 7.099 L* ABG pCO2 45.3 ABG pO2 557.1 H ABG HCO3 13.7 L ABG Total CO2 15.1 L ABG O2 Saturation 99.6 ABG Base Excess -15.4 L FiO2 100.00 Sodium Potassium Chloride Carbon Dioxide Anion Gap BUN Creatinine GFR Calculation BUN/Creatinine Ratio Glucose POC Glucose Calculated Osmolality Lactic Acid Calcium Magnesium Total Bilirubin AST ALT Alkaline Phosphatase Total Creatine Kinase CK-MB (CK-2) CK and CKMB Interp Troponin I Total Protein Albumin Globulin Albumin/Globulin Ratio Valproic Acid Preliminary micro results at discharge 01/21/17 21:30 Stool Culture - Preliminary Stool No enteric pathogens at 12 hrs DS: Provider Date of admission: 01/21/17 19:42 Primary care physician: . No PCP Attending physician on admission: Srinivas Jolly MD Consults: 01/21/17 21:00 Consult to Pharmacy [CONS] Routine Reason for Pharmacy Consult: Dose/Manage Vancomycin Consult to Physician [CONS] Routine Comment: resp failure Consulting Provider: Ren Samson Consult to Specialist Group: Pulmonology Person Notified: [email or web address] Date Notified: 01/22/17 Time Notified: 08:54 01/21/17 23:37 Consult to Dietitian [CONS] Routine Reason for Dietitian: Diet Recommendations 01/22/17 01:24 Consult to Physician [CONS] Routine Comment: Consulting Provider: Gabriella Young When should Consulting Provider be notified: Now Consult to Specialist Group: Cardiology Person Notified: DR. Young Date Notified: 01/22/17 Time Notified: 01:00 01/22/17 05:18 Consult to Physician [CONS] Routine Comment: Consulting Provider: Karthikeyan Moraes When should Consulting Provider be notified: In am Consult to Specialist Group: Surgery Person Notified: dr moraes Date Notified: 01/22/17 Time Notified: 08:00 Consult Notification Comment: md notified prior & here to see pt now 01/22/17 10:09 Consult to Pastoral Services [CONS] Routine Comment: Withdrawing Care. Name of Physician Requesting: Trent Discharging clinician: Amanda Newman MD
[2017-01-23] MEDS ORDERED: VANCOMYCIN INJ 750 MG in SODIUM CHLORIDE 0.9% 250 ML IV ONE (09:00)
== END 2017-01-22 11:38 | disposition expired | DRG 720 ==
LOC: EDUNIT# → EDBD → N.ED 18:32 → N.EDINP 19:42 → SUATTDRO 19:42 → N.CC 19:56
PROVIDERS: ADMIT Internal Medicine Infectious Disease; ATTEND Internal Medicine